=== PATIENT | female | born 1955 | race Caucasian/White ===

== ENCOUNTER → 2017-02-02 | Outpatient (CLI) | payer OTHER | END | disposition home or self-care (01) | LOC: LABPAT 10:57 | PROVIDERS: ATTEND Orthopaedic Surgery | DX: Z01.812 Encounter for preprocedural laboratory examination (principal) | CPT/HCPCS: 87070 ==

== ENCOUNTER 2017-02-13 06:03 | Inpatient (IN) | payer OTHER ==
[2017-02-08 13:42] VITALS: BMI 28.3
[~2017-02-13 06:03] MED LIST: ACETAMINOPHEN TAB 500 MG TAB PO ONE; DEXAMETHASONE SOD PHOSPHATE 10 MG/ML 1 ML VIAL IV ONE; HYDROmorphone 1 MG/ML 1 ML SYRINGE IVP PRN; MELOXICAM 7.5 MG TAB PO ONE; MIDAZOLAM 2 MG/2 ML VIAL IV PRN; ONDANSETRON 4 MG/2 ML VIAL IVP ONE; SCOPOLAMINE 1.5MG/72HR PATCH TRANSDERM ONE; TRANEXAMIC ACID 1,000 MG in SODIUM CHLORIDE 0.9% 100 ML IVPB ONE; ceFAZolin 2 GM in SODIUM CHLORIDE 0.9% 100 ML IVPB ONE
[2017-02-13] MEDS ORDERED: LIDOCAINE 1% 20 ML VIAL (10MG/ML) FOR IV START INTRADERMA ONE (06:22)
[2017-02-13] MEDS: LACTATED RINGERS 1,000 ML IV SCH (06:22)
[2017-02-13 06:37] LABS: Glucose,Whole Blood 100 mg/dL (75-99)
[2017-02-13] MEDS ORDERED: HEPARIN SODIUM,PORCINE 10,000 UNIT/ML 1 ML VIAL ONE (07:01)
[2017-02-13] MEDS ORDERED: SODIUM CHLORIDE 0.9% IRRIG 1,000 ML BTL IRRIGATION ONE (07:01)
[2017-02-13] MEDS ORDERED: TRANEXAMIC ACID 1,000 MG/10 ML VIAL ONE (07:01)
[2017-02-13] MEDS ORDERED: SODIUM CHLORIDE 0.9% 100 ML BAG ONE (07:01)
[2017-02-13] MEDS ORDERED: ceFAZolin 3,000 MG in SODIUM CHLORIDE 0.9% IRRIGATIO 3,000 ML IRRIGATION ONE (07:01)
[2017-02-13] MEDS ORDERED: MIDAZOLAM 2 MG/2 ML VIAL ONE (07:01)
[2017-02-13] MEDS ORDERED: PROPOFOL 10 MG/ML 20 ML VIAL IV ONE (07:01)
[2017-02-13] MEDS ORDERED: LACTATED RINGERS 1,000 ML IV ONE (07:18)
[2017-02-13] MEDS: ROPIVACAINE 246.25 MG, EPINEPHrine 0.5 MG, KETOROLAC 30 MG, cloNIDine HCL/PF 80 MCG, WA... MISCELLANE ONE ×10 (07:31→08:11)
--- NOTE | 2017-02-13 08:38 | XR ---
FLUOROSCOPY 43 seconds of fluoroscopy time were utilized during left hip arthroplasty. 2 images document the proc edure.
[2017-02-13] MEDS ORDERED: hydrOXYzine PAMOATE 25 MG CAP PO PRN (08:46)
[2017-02-13] MEDS ORDERED: HYDROcodone/APAP 5-325MG 1 EACH TAB PO PRN ×2 (08:46)
[2017-02-13] MEDS ORDERED: ONDANSETRON 4 MG/2 ML VIAL IVP PRN (08:46)
[2017-02-13] MEDS ORDERED: DIAZEPAM 5 MG TAB PO PRN ×2 (08:46)
[2017-02-13] MEDS ORDERED: NALOXONE 0.4 MG/ML 1 ML VIAL IV PRN (08:46)
[2017-02-13] MEDS ORDERED: MAGNESIUM HYDROXIDE 2,400 MG/10 ML CUP PO PRN (08:46)
[2017-02-13] MEDS ORDERED: HYDROmorphone 1 MG/ML 1 ML SYRINGE IVP PRN ×3 (08:46)
[2017-02-13 09:06] LABS: Glucose,Whole Blood 119 mg/dL (75-99)
--- NOTE | 2017-02-13 09:39 | XR ---
EXAMINATION TYPE: XR Hip Limited LT DATE OF EXAM ORDERED: 02/13/2017 HISTORY: Postop arthroplasty. COMPARISON: None. FINDINGS: A left arthroplasty has been performed. Prosthetic elements appear in good position. There is some subcutaneous air present. IMPRESSION: STATUS POST LEFT ARTHROPLASTY.
[2017-02-13] MEDS: ASPIRIN 325 MG TAB PO SCH ×2 (11:36→22:13)
[2017-02-13 11:44] LABS: Glucose,Whole Blood 109 mg/dL (75-99)
--- NOTE | 2017-02-13 13:30 | P.OP ---
Date of Procedure: 02/13/17 Preoperative Diagnosis: Severe osteoarthritis of the left hip Postoperative Diagnosis: Severe osteoarthritis of the left hip Procedure(s) Performed: Left total hip arthroplasty with a direct anterior approach Implants: [employer] Polarstem size 5 standard [employer] R3, 3 hole acetabular shell, 48 mm [employer] reflection 6.5 mm cancellus screw, 20 mm 2 [employer] R3, XLPE 20 acetabular liner [employer] Oxinium femoral head 32 m, +0 All components were press-fit. The articulation is ceramic on polyethylene. Anesthesia: spinal Surgeon: Andrew Gates Package Liner #1: Ora García Package Liner #2: Litzy Stallworth Estimated Blood Loss (ml): 175 (67 mL returned with Cell Saver) Pathology: other (Femoral head) Condition: stable Disposition: PACU Indications for Procedure: After failure of conservative treatment we discussed the surgical and nonsurgical treatment options at length. Patient wishes to proceed with a total hip arthroplasty with a direct anterior approach. Complications specific to this procedure were discussed at length, including but not limited to infection, leg length discrepancy, dislocation, and nerve injury. Patient is aware of all these complications and informed consent was obtained Operative Findings: The operative findings are consistent with severe osteoarthritis of the left hip Description of Procedure: Patient was seen and evaluated in the preoperative area, consent was reviewed, and the surgical site was marked with a skin marker. Patient was then brought to the operating room and given prophylactic antibiotics intravenously. 1 g of Tranexamic acid was also given. A spinal anesthetic was administered by the anesthesia department. The patient was then placed on the [place] table with the bony prominences well-padded. The hip area was then prepped and draped in usual sterile fashion. A universal timeout was then performed, which confirmed the patient's name, surgical site, ALLERGIES, and procedure being performed. Next the incision site was located at 1 cm distal and 1 cm lateral to the anterior superior iliac spine. The skin and subcutaneous tissues were sharply incised. Incision was carefully dissected down to the fascia overlying the tensor fascia greg muscle. This fascia was then incised in line with the incision. Next, using blunt finger dissection, the tensor fascia greg muscle was dissected off its investing fascia. The muscle was then carefully retracted laterally with a cobra retractor over the lateral neck of the femur. Next, the circumflex vessels were identified and cauterized using the AquaMantis device. The anterior hip capsule was then exposed. The capsule was then opened and an inverted T fashion. Retention sutures were placed in the inferior arms of the capsule. Cobra retractors were then placed intracapsularly. The proximal femur was then visualized. The femoral neck was then osteotomized appropriate level above the lesser trochanter. Small amount of traction was placed with the [place] table. A small wedge of bone was then removed from the remaining femoral head. Next, using a corkscrew femoral head was easily removed from the acetabulum. On gross visual inspection, the femoral head had complete loss of articular cartilage in multiple periarticular osteophytes. Attention was then turned to the acetabulum. the acetabulum was exposed and any remaining labrum was excised. Sequential reaming of the acetabulum was performed using fluoroscopic guidance. When the appropriate size was reached, a trial was then placed. The position and fit of the trial was checked with fluoroscopy. The trial was then removed. Then, using fluoroscopic guidance, the final implant was impacted at 20 of anteversion and 40 of abduction, and fully seated in the acetabulum. 2 screws were then placed in the acetabulum. Again fluoroscopy was used to check position of the screws. Next, the liner was then impacted, with a 20 elevated liner located in the anterior superior quadrant. Component locking was confirmed. Attention was then directed to the femur. With the aid of the [place] table, the femur was externally rotated to approximately 130, extended, and abducted under the opposite leg. A side hook was then placed under the proximal femur, and the side hook elevator was used to elevate the proximal femur. Retractors were then placed. A capsular release was performed, as well as a release of the conjoined tendon, which afforded excellent visualization of the proximal femur. Next, a box osteotome was used to lateralize the proximal femur. A sales merchandise associate was then used to locate the femoral canal. Sequential broaching was then performed with appropriate size which afforded excellent fixation in the proximal femur. A trial was then placed with appropriate head and neck, and the hip was gently reduced with the aid of the [place] table. Fluoroscopy was then used to check position of the components, as well as to ensure equal leg lengths. The hip was then gently dislocated and the trials were then removed. Final implants were then impacted and the hip was again reduced. Final fluoroscopic x-rays confirmed that the components were in anatomic position, as well as equal leg lengths. The hip was also taken through range of motion, and found to be stable. The hip was then copiously irrigated with antibiotic solution with pulsatile lavage. The hip was then irrigated with Irrisept solution. The soft tissues were then injected with a ropivacaine solution, which consisted of 246.25 mg of ropivacaine, 0.5 mg of epinephrine, 30 mg of Toradol, 80 g of clonidine, and 48.45 mL of sterile water, for a total of 100 mL of fluid injected. A second dose of 1 g of Tranexamic acid was also given. the fascia was then closed with 2-0 strata fix suture. The subcutaneous tissue was closed with 3-0 Vicryl. The subcuticular tissue was closed with 3-0 strata fix suture. The skin was then closed with Dermabond tape. The patient was then transferred to the recovery room in stable condition. The commercial lending assistant VERO Zuniga was required due to the complexity of surgery , and the need for skilled surgical attendant for positioning, draping, exposure , retraction, and closure of the wound.
[2017-02-13] MEDS: SODIUM CHLORIDE 0.9% 1,000 ML IV SCH ×2 (15:03→23:08)
[2017-02-13] MEDS: ceFAZolin 2 GM in SODIUM CHLORIDE 0.9% 100 ML IVPB SCH ×2 (15:03→23:06)
[2017-02-13 16:59] LABS: Glucose,Whole Blood 135 mg/dL (75-99)
[2017-02-13] MEDS: INSULIN LISPRO (humaLOG) 300 UNIT/3 ML VIAL SQ SCH ×2 (19:33→22:13)
[2017-02-13 20:33] LABS: Glucose,Whole Blood 162 mg/dL (75-99)
[2017-02-13] MEDS: SENNOSIDES-DOCUSATE SODIUM 1 EACH TAB PO SCH (22:13)
[2017-02-13] MEDS: ATORVASTATIN 10 MG TAB PO SCH (22:13)
[2017-02-13] MEDS: FLUTICASONE 50MCG/SPRAY NASAL 16GM EA NOSTRIL SCH (23:07)
[2017-02-14 00:54] VITALS: RESP 16
--- NOTE | 2017-02-14 05:50 | CONS ---
DATE OF CONSULTATION: 02/13/2017 REASON FOR CONSULTATION: Medical management requested by Dr. Gates. CONSULTATION: This is a 61-year-old patient of Dr. Chauhan undergone a left total hip arthroplasty. Post procedure, pain is controlled. No nausea or vomiting. No chest pain. Chronic stable medical conditions include diabetes, GERD, hyperlipidemia, hypertension, varicose veins. Lying in bed. REVIEW OF SYSTEMS: CONSTITUTIONAL: None. HEENT: None. RESPIRATORY: None. CARDIOVASCULAR: None. GASTROINTESTINAL: Heartburn. GENITOURINARY: None. MUSCULOSKELETAL: Pain in the joints. DERMATOLOGICAL: None. HEMATOLOGICAL: None. LYMPHATIC: None. PSYCHIATRY: None. NEUROLOGICAL: None. PAST MEDICAL HISTORY: Diabetes, GERD, hypertension, hyperlipidemia, varicose veins, osteoarthritis. PAST SURGICAL HISTORY: Cholecystectomy, orthopedic surgery, left knee arthroscopy. SOCIAL HISTORY: Does not smoke or drink alcohol. . FAMILY HISTORY: Cancer. HOME MEDICATIONS: 1. Ultram 50 mg p.o. b.i.d. p.r.n. 2. Zantac 150 mg p.o. daily. 3. Claritin 10 mg p.o. daily. 4. Zestril 2.5 p.o. daily. 5. Flonase one spray each nostril q.h.s. 6. Lipitor 10 mg q.h.s. Allergies to SULFA. On examination, temperature 97, pulse 59, respiration 16, blood pressure 122/71, pulse ox 97%. GENERAL APPEARANCE: Average built, lying in bed, comfortable. EYES: Pupils equal. Conjunctivae normal. HEENT: Oral cavity normal. NECK: JVD not raised. Mass not palpable. RESPIRATORY: Effort normal. LUNGS: Fair air entry. CARDIOVASCULAR: First and second sounds normal. No edema. ABDOMEN: Soft, nontender. Liver and spleen not palpable. LYMPHATIC: No lymph node palpable in neck or axillae. PSYCHIATRY: Alert and oriented x3. Mood and affect normal. NEUROLOGICAL: Pupils equal. Cranial nerves grossly intact. Power and sensation grossly intact. MUSCULOSKELETAL: Evidence of osteoarthritis in other joints. INVESTIGATIONS: Accu-Cheks are noted. ASSESSMENT: 1. Left total hip arthroplasty. 2. Primary osteoarthritis in multiple joints, bilateral. 3. Diabetes mellitus type 2. 4. Gastroesophageal reflux disease. 5. Hyperlipidemia. 6. Hypertension. 7. Varicose veins. PLAN: Home medications are resumed. Patient is on aspirin 325 twice a day for DVT prophylaxis. Pain is controlled. Care was discussed with the patient. Patient upon discharge should follow with Dr. Chauhan. Thank you Dr. Gates.
[2017-02-14 06:54] LABS: Glucose,Whole Blood 116 mg/dL (75-99)
[2017-02-14 07:23] LABS: Basophils % (A) 0 %; CH 26.1; CHCM 32.2; Eosinophils % (A) 0 %; HDW 2.53; HGB 10.4 gm/dL (11.4-16.0); Luc # (Auto) 0.15; Luc % (Auto) 2; Lymphocytes # (A) 1.5 k/uL (1.0-4.8); Lymphocytes % (A) 19 %; MCH 26.5 pg (25.0-35.0); MCHC 32.5 g/dL (31.0-37.0); MCV 81.3 fL (80.0-100.0); Mean Platelet Volume 7.3; Monocytes # (A) 0.5 k/uL (0-1.0); Monocytes % (A) 7 %; Neutrophils # (A) 5.8 k/uL (1.3-7.7); Neutrophils % (A) 72 %; RBC 3.93 m/uL (3.80-5.40); WBC (Perox) 8.76
[2017-02-14] MEDS: LACTATED RINGERS 1,000 ML IV SCH (07:35)
[2017-02-14] MEDS: INSULIN LISPRO (humaLOG) 300 UNIT/3 ML VIAL SQ SCH ×4 (07:37→23:42)
[2017-02-14] MEDS: ASPIRIN 325 MG TAB PO SCH ×2 (07:37→21:04)
[2017-02-14] MEDS: FAMOTIDINE 20 MG TAB PO SCH (07:37)
[2017-02-14] MEDS: traMADol 50 MG TAB PO PRN ×2 (07:37→13:33)
[2017-02-14] MEDS: LORATADINE 10 MG TAB PO SCH (07:38)
[2017-02-14] MEDS: MELOXICAM 7.5 MG TAB PO SCH (07:38)
[2017-02-14] MEDS: LISINOPRIL 2.5 MG TAB PO SCH (07:38)
[2017-02-14] MEDS ORDERED: ENOXAPARIN 40 MG/0.4 ML SYRINGE SQ SCH (09:00)
--- NOTE | 2017-02-14 09:04 | P.PN ---
Subjective Principal diagnosis: Status post total left hip arthroplasty This is a well-appearing 61-year-old female who is status post total left hip arthroplasty. This is postoperative day #1. Patient was seen and evaluated at bedside with Dr. Andrew Gates. Patient has been up and walking and her pain is under control. Patient has no new complaints today. Objective - Vital Signs Vital signs: Vital Signs Temp 98.3 F 02/14/17 07:34 Pulse 78 02/14/17 07:34 Resp 16 02/14/17 07:34 BP 126/74 02/14/17 07:34 Pulse Ox 97 02/14/17 07:34 Intake & Output 02/13/17 02/14/17 02/14/17 18:59 06:59 18:59 Intake Total 1401 940 Output Total 175 Balance 1226 940 Weight 77.111 kg Intake: IV 1401 Intake, IV Titration 700 Amount Sodium Chloride 0.9% 1, 600 000 ml @ 75 mls/hr IV . [id number] ORIN Rx#:[id number] ceFAZolin 2 gm In Sodium 100 Chloride 0.9% 100 ml @ 100 mls/hr IVPB Q8HR ORIN Rx#:[id number] Oral 240 Output: Estimated Blood Loss 175 Other: Voiding Method Incontinent Toilet Toilet # Voids 2 1 2 - Exam Vital signs are stable. Patient is in no acute distress and is alert and oriented 3. Calf is soft and nontender. Incision with dressing in place showing no drainage. Neurovascular status intact. Patient has full foot and ankle motion. Patient is able to ambulate without difficulty. - Labs CBC & Chem 7: 02/14/17 07:02 Labs: Abnormal Lab Results - Last 24 Hours (Table) 02/13/17 02/13/17 02/13/17 Range/Units 09:03 11:42 16:56 Hgb (11.4-16.0) gm/dL Hct (34.0-46.0) % POC Glucose (mg/dL) 119 H 109 H 135 H (75-99) mg/dL 02/13/17 02/14/17 02/14/17 Range/Units 20:31 06:52 07:02 Hgb 10.4 L (11.4-16.0) gm/dL Hct 32.0 L (34.0-46.0) % POC Glucose (mg/dL) 162 H 116 H (75-99) mg/dL Assessment and Plan (1) Primary osteoarthritis of left hip Status: Acute (2) History of total left hip arthroplasty Status: Acute Plan: Continue routine postop care. Continue antocoagulation. Weightbearing as tolerated with a walker Daily dressing changes, keep incision clean and dry Possible discharge to rehab Sunday.
[2017-02-14 11:37] LABS: Glucose,Whole Blood 124 mg/dL (75-99)
[2017-02-14 11:42] LABS: Hemoglobin A1C 5.9 % (4.2-6.1)
[2017-02-14] MEDS: SODIUM CHLORIDE 0.9% 1,000 ML IV SCH (13:32)
[2017-02-14 17:10] LABS: Glucose,Whole Blood 120 mg/dL (75-99)
[2017-02-14] MEDS ORDERED: traMADol 50 MG TAB PO PRN (19:06)
[2017-02-14] MEDS: FLUTICASONE 50MCG/SPRAY NASAL 16GM EA NOSTRIL SCH ×2 (21:04→21:48)
[2017-02-14] MEDS: ATORVASTATIN 10 MG TAB PO SCH (21:04)
[2017-02-14 21:25] LABS: Glucose,Whole Blood 143 mg/dL (75-99)
[2017-02-14] MEDS: SENNOSIDES-DOCUSATE SODIUM 1 EACH TAB PO SCH (23:03)
--- NOTE | 2017-02-15 07:16 | PN ---
DATE OF SERVICE: 02/14/2017 PRESENTING COMPLAINT: Left hip surgery. INTERVAL HISTORY: Patient is status post left hip surgery, doing better, comfortable. No chest pain, short of breath. Tolerated his diet. Was out of bed. Review systems done for constitutional, cardiovascular, GI, pulmonary, musculoskeletal; relevant findings as above. Current medications are reviewed. On examination, temperature 98.3, pulse 78, respiration 16, blood pressure 126/74, pulse ox 97% on room air. GENERAL APPEARANCE: Sitting up, comfortable. EYES: Pupils equal. Conjunctivae normal. NECK: JVD not raised. Mass not palpable. RESPIRATORY: Effort normal. Lungs are clear. CARDIOVASCULAR: First and second sounds normal. No edema. ABDOMEN: Soft, nontender. Liver and spleen not palpable. PSYCHIATRY: Alert and oriented x3. Mood and affect normal. INVESTIGATIONS: Hemoglobin is 10.4 ASSESSMENT: 1. Left total hip arthroplasty. 2. Primary osteoarthritis multiple joints, bilateral. 3. Diabetes mellitus type 2. 4. Gastroesophageal reflux disease. 5. Hyperlipidemia. 6. Essential hypertension. 7. Varicose veins. PLAN: Continue current medication and treatment plan. Will follow.
[2017-02-15 07:21] LABS: Glucose,Whole Blood 130 mg/dL (75-99)
[2017-02-15] MEDS: SODIUM CHLORIDE 0.9% 1,000 ML IV SCH ×2 (07:45→12:45)
[2017-02-15] MEDS: LACTATED RINGERS 1,000 ML IV SCH (07:46)
[2017-02-15] MEDS: INSULIN LISPRO (humaLOG) 300 UNIT/3 ML VIAL SQ SCH ×4 (07:47→21:10)
[2017-02-15] MEDS: FAMOTIDINE 20 MG TAB PO SCH (08:07)
[2017-02-15] MEDS: LORATADINE 10 MG TAB PO SCH (08:07)
[2017-02-15] MEDS: MELOXICAM 7.5 MG TAB PO SCH (08:07)
[2017-02-15] MEDS: ASPIRIN 325 MG TAB PO SCH ×2 (08:08→20:01)
[2017-02-15] MEDS: LISINOPRIL 2.5 MG TAB PO SCH (08:08)
--- NOTE | 2017-02-15 08:48 | P.PN ---
Subjective Principal diagnosis: Status post total left hip arthroplasty This is a well-appearing 61-year-old female who is status post total left hip arthroplasty. This is postoperative day #2. Patient was seen and evaluated at bedside today. Patient has been up and walking and states her pain is under control. Patient has no new complaints today. Objective - Vital Signs Vital signs: Vital Signs Temp 99.1 F 02/15/17 07:40 Pulse 87 02/15/17 07:40 Resp 16 02/15/17 07:40 BP 115/59 02/15/17 07:40 Pulse Ox 96 02/15/17 07:40 Intake & Output 02/14/17 02/15/17 02/15/17 18:59 06:59 18:59 Intake Total 240 Output Total 0 Balance 240 0 Intake: Oral 240 Output: Urine 0 Other: Voiding Method Toilet # Voids 2 0 # Bowel Movements 1 - Exam Vital signs are stable. Patient is in no acute distress and is alert and oriented 3. Calf is soft and nontender. Incision is clean, dry, and intact. Neurovascular status intact. Patient has full foot and ankle motion. - Labs CBC & Chem 7: 02/14/17 07:02 Labs: Abnormal Lab Results - Last 24 Hours (Table) 02/14/17 02/14/17 02/14/17 Range/Units 11:33 17:08 21:24 POC Glucose (mg/dL) 124 H 120 H 143 H (75-99) mg/dL 02/15/17 Range/Units 07:01 POC Glucose (mg/dL) 130 H (75-99) mg/dL Assessment and Plan (1) Primary osteoarthritis of left hip Status: Acute (2) History of total left hip arthroplasty Status: Acute Plan: Continue routine postop care. Continue antocoagulation. Weightbearing as tolerated with a walker Daily dressing changes, keep incision clean and dry Likely discharge to rehab tomorrow
[2017-02-15 12:08] LABS: Glucose,Whole Blood 114 mg/dL (75-99)
[2017-02-15 16:57] LABS: Glucose,Whole Blood 123 mg/dL (75-99)
[2017-02-15] MEDS: ATORVASTATIN 10 MG TAB PO SCH (20:01)
[2017-02-15] MEDS: FLUTICASONE 50MCG/SPRAY NASAL 16GM EA NOSTRIL SCH (20:01)
[2017-02-15] MEDS: SENNOSIDES-DOCUSATE SODIUM 1 EACH TAB PO SCH (20:01)
[2017-02-15 20:53] LABS: Glucose,Whole Blood 150 mg/dL (75-99)
[2017-02-16] MEDS: LACTATED RINGERS 1,000 ML IV SCH (06:26)
[2017-02-16] MEDS: SODIUM CHLORIDE 0.9% 1,000 ML IV SCH (06:26)
[2017-02-16 07:22] LABS: Basophils % (A) 0 %; CH 26.2; Eosinophils # (A) 0.1 k/uL (0-0.7); Eosinophils % (A) 1 %; HCT 32.3 % (34.0-46.0); HDW 2.47; HGB 10.3 gm/dL (11.4-16.0); Luc # (Auto) 0.18; Luc % (Auto) 2; Lymphocytes # (A) 1.8 k/uL (1.0-4.8); Lymphocytes % (A) 24 %; MCH 26.3 pg (25.0-35.0); MCV 82.2 fL (80.0-100.0); Mean Platelet Volume 7.2; Monocytes # (A) 0.6 k/uL (0-1.0); Monocytes % (A) 8 %; Neutrophils # (A) 4.8 k/uL (1.3-7.7); Neutrophils % (A) 64 %; RBC 3.93 m/uL (3.80-5.40); RDW 14.1 % (11.5-15.5); WBC 7.4 k/uL (3.8-10.6)
[2017-02-16 07:29] VITALS: BP 116/58; PULSE 80; TEMP 98.2
[2017-02-16 07:52] LABS: Glucose,Whole Blood 119 mg/dL (75-99)
[2017-02-16] MEDS: INSULIN LISPRO (humaLOG) 300 UNIT/3 ML VIAL SQ SCH ×2 (08:04→12:07)
--- NOTE | 2017-02-16 08:08 | P.DS ---
Providers Date of admission: 02/13/17 06:03 Expected date of discharge: 02/16/17 Attending physician: Andrew Gates Consults: 02/13/17 08:46 Consult Physician Routine Consulting Provider: Doe Burdick Consult Reason/Comments: medical management Do you want consulting provider notified?: Yes Primary care physician: Yunior Chauhan - Discharge Diagnosis(es) (1) Primary osteoarthritis of left hip Current Visit: Yes Status: Acute (2) History of total left hip arthroplasty Current Visit: Yes Status: Acute Hospital Course: This is a 61-year-old female with known history of degenerative arthritis of the left hip. The patient presents for evaluation. After discussion and consideration patient elects to proceed with total hip arthroplasty. The patient is seen preoperatively by Dr. Gates and cleared for surgery. Patient is admitted to [facility] on 02/13/2017 for total hip arthroplasty. The procedures performed without complication or sequelae. The patient is doing well postoperatively. Labs and vital signs are stable on day of discharge. On day of discharge patient's hip incision is healing well. There is minimal erythema. There is no drainage noted at this time. There is minimal soft tissue swelling to the hip and thigh. Patient has full foot and ankle motion without difficulty or pain. Neurovascular status to the left lower extremity is intact. Patient is discharged to rehab in good condition.Please see med rec for accurate list of home medications. Plan - Discharge Summary New Discharge Prescriptions: New Aspirin 325 mg PO BID #60 tab HYDROcodone/APAP 5-325MG [[place] 5-325] 1 - 2 tab PO Q4-6H PRN #90 tab PRN Reason: Pain Sennosides-Docusate Sodium [Senokot-S] 1 tab PO BID #60 tablet Continue Acetaminophen Tab [Tylenol] 1,500 mg PO Q6H PRN PRN Reason: Pain Ranitidine HCl [Zantac] 150 mg PO DAILY Loratadine 10 mg PO DAILY Fluticasone Nasal [place] [Flonase Nasal [place]] 1 spray EA NOSTRIL HS Atorvastatin Calcium [Lipitor] 10 mg PO HS Lisinopril [Zestril] 2.5 mg PO DAILY traMADol HCL [Ultram] 50 mg PO BID PRN PRN Reason: Pain Discharge Medication List Acetaminophen Tab [Tylenol] 1,500 mg PO Q6H PRN 02/08/17 [History] Atorvastatin Calcium [Lipitor] 10 mg PO HS 02/08/17 [History] Fluticasone Nasal [place] [Flonase Nasal [place]] 1 spray EA NOSTRIL HS 02/08/17 [ History] Lisinopril [Zestril] 2.5 mg PO DAILY 02/08/17 [History] Loratadine 10 mg PO DAILY 02/08/17 [History] Ranitidine HCl [Zantac] 150 mg PO DAILY 02/08/17 [History] traMADol HCL [Ultram] 50 mg PO BID PRN 02/08/17 [History] Aspirin 325 mg PO BID #60 tab 02/15/17 [Rx] HYDROcodone/APAP 5-325MG [[place] 5-325] 1 - 2 tab PO Q4-6H PRN #90 tab 02/15/17 [ Rx] Sennosides-Docusate Sodium [Senokot-S] 1 tab PO BID #60 tablet 02/15/17 [Rx] Follow up Appointment(s)/Referral(s): Yunior Chauhan MD [Primary Care Provider] - 3 Days Andrew Gates DO [Doctor of Osteopathic Medicine] - 2 Weeks Ambulatory/Diagnostic Orders: Basic Metabolic Panel [LAB.AMB] Location: Determined By Patient Activity/Diet/Wound Care/Special Instructions: [facility] rehab Weightbearing as tolerated with walker May shower after 2 days if no drainage from the incision Follow-up with [facility] in 2 weeks with any questions or concerns, [phone]. Discharge Disposition: TRANSFER TO SNF/ECF
[2017-02-16] MEDS: LISINOPRIL 2.5 MG TAB PO SCH (08:32)
[2017-02-16] MEDS: LORATADINE 10 MG TAB PO SCH (08:32)
[2017-02-16] MEDS: MELOXICAM 7.5 MG TAB PO SCH (08:32)
[2017-02-16] MEDS: FAMOTIDINE 20 MG TAB PO SCH (08:32)
[2017-02-16] MEDS: ASPIRIN 325 MG TAB PO SCH (08:33)
[2017-02-16 12:05] LABS: Glucose,Whole Blood 127 mg/dL (75-99)
--- NOTE | 2017-02-16 21:48 | PN ---
DATE OF SERVICE: 02/15/2017 PRESENTING COMPLAINT: Left hip surgery. INTERVAL HISTORY: This patient was seen by me on 02/15/2017. The patient is status post left hip surgery, doing better. No new issues. Tolerating at diet. Working with physical therapy. Review of systems done for constitutional, cardiovascular, GI, pulmonary, musculoskeletal; relevant findings as above. Current medications are reviewed. On examination, temperature 99.1, pulse 87, respirations 18, blood pressure 115/59, pulse ox 96% on room air. GENERAL APPEARANCE: Sitting up, comfortable. EYES: Pupils equal. Conjunctivae normal. NECK: JVD not raised. Mass not palpable. RESPIRATORY: Effort normal. LUNGS: Clear. CARDIOVASCULAR: First and second sounds normal. No edema. ABDOMEN: Soft, nontender. Liver and spleen not palpable. PSYCHIATRY: Alert and oriented times three. Mood and affect normal. INVESTIGATIONS: Accu-Cheks are noted. ASSESSMENT: 1. Left breast left total hip arthroplasty. 2. Primary osteoarthritis of multiple joints, bilateral. 3. Diabetes mellitus type 2. 4. Gastroesophageal reflux disease. 5. Hyperlipidemia. 6. Essential hypertension. 7. Varicose veins. PLAN: Care was discussed with the patient. No new issues. Continue to ambulate with therapy.
--- NOTE | 2017-02-16 23:19 | PN ---
DATE OF SERVICE: 02/16/2017 PRESENTING COMPLAINT: Left hip surgery. INTERVAL HISTORY: Patient is status post left hip surgery, doing much better. Tolerating a diet. Keen to go. Review of systems done for constitutional, cardiovascular, GI, pulmonary, musculoskeletal; findings as above. Current medications are reviewed. On examination, temperature 98.2, pulse 80, respirations 16, blood pressure 106/58, pulse ox 95% on room air. GENERAL APPEARANCE: Sitting up, comfortable. EYES: Pupils equal. Not raised. Mass not palpable. RESPIRATORY: Effort normal. Lungs are clear. CARDIOVASCULAR: First and second sounds normal. No edema. ABDOMEN: Soft. Liver and spleen not palpable. PSYCHIATRY: Mood normal. INVESTIGATIONS: White count 7.4, hemoglobin 10.3. ASSESSMENT: 1. Left total hip arthroplasty. 2. Primary osteoarthritis multiple joints bilaterally. 3. Diabetes mellitus type 2. 4. Gastroesophageal reflux disease. 5. Hyperlipidemia. 6. Essential hypertension. 7. Varicose veins. PLAN: Patient is stable. Looking forward for discharge. Care was discussed with the patient. Questions were answered.
== END 2017-02-16 15:11 | DRG 470 ==
LOC: 2ORMAIN 06:03 → 3SUR 08:55
PROVIDERS: ADMIT Orthopaedic Surgery; ATTEND Orthopaedic Surgery
PROC: 0SRB04A Replacement of Left Hip Joint with Ceramic on Polyethylene Synthetic Substitute, Uncemented, Open Approach (ICD-10-PCS; principal; 2017-02-13 07:00)
DX: M16.12 Unilateral primary osteoarthritis, left hip (principal); I10 Essential (primary) hypertension; E11.9 Type 2 diabetes mellitus without complications; E78.5 Hyperlipidemia, unspecified; I83.90 Asymptomatic varicose veins of unspecified lower extremity; K21.9 Gastro-esophageal reflux disease without esophagitis; Z79.899 Other long term (current) drug therapy; Z88.2 Allergy status to sulfonamides; Z79.82 Long term (current) use of aspirin
CPT/HCPCS: 73501; 83036; 85025; 86850; 86891; 86900; 86901; 88300

== ENCOUNTER 2019-09-22 07:00 | Inpatient (IN) | payer OTHER ==
[2019-09-16 13:52] VITALS: BMI 29.1
[~2019-09-22 07:00] MED LIST changes: +GABAPENTIN 300 MG CAP PO ONE; -HYDROmorphone 1 MG/ML 1 ML SYRINGE IVP PRN; +LIDOCAINE 1% 20 ML VIAL (10MG/ML) FOR IV START INTRADERMA PRN; -MIDAZOLAM 2 MG/2 ML VIAL IV PRN; +ROPIVACAINE 246.25 MG, EPINEPHrine 0.5 MG, KETOROLAC 30 MG, cloNIDine HCL/PF 80 MCG, WA... MISCELLANE ONE; -SCOPOLAMINE 1.5MG/72HR PATCH TRANSDERM ONE; -ceFAZolin 2 GM in SODIUM CHLORIDE 0.9% 100 ML IVPB ONE; +fentaNYL (PF) 50 MCG/ML 2 ML AMP IV PRN
[2019-09-22] MEDS ORDERED: MAGNESIUM HYDROXIDE 2,400 MG/10 ML CUP PO PRN (11:51)
[2019-09-22] MEDS ORDERED: hydrOXYzine PAMOATE 25 MG CAP PO PRN (11:51)
[2019-09-22] MEDS ORDERED: ONDANSETRON 4 MG/2 ML VIAL IVP PRN (11:51)
[2019-09-22] MEDS ORDERED: NALOXONE 0.4 MG/ML 1 ML VIAL IV PRN (11:51)
[2019-09-22] MEDS ORDERED: DIAZEPAM 5 MG TAB PO PRN (11:51)
[2019-09-22] MEDS ORDERED: HYDROcodone/APAP 5-325MG 1 EACH TAB PO PRN ×2 (11:51)
[2019-09-22] MEDS ORDERED: HYDROmorphone 1 MG/ML 1 ML SYRINGE IVP PRN (11:51)
[2019-09-22] MEDS ORDERED: HYDROmorphone 0.5 MG/0.5 ML SYRINGE IVP PRN (11:51)
[2019-09-22] MEDS: LACTATED RINGERS 1,000 ML IV SCH (12:24)
[2019-09-22] MEDS ORDERED: PROPOFOL 10 MG/ML 20 ML VIAL IV ONE (12:50)
[2019-09-22] MEDS ORDERED: HEPARIN SODIUM,PORCINE 10,000 UNIT/ML 1 ML VIAL ONE (12:50)
[2019-09-22] MEDS ORDERED: HYDROmorphone (PF) 1 MG/ML ONE (12:50)
[2019-09-22] MEDS ORDERED: LACTATED RINGERS 1,000 ML BAG IV ONE (12:50)
[2019-09-22] MEDS ORDERED: fentaNYL (PF) 50 MCG/ML 2 ML AMP ONE (12:50)
[2019-09-22] MEDS ORDERED: MIDAZOLAM 2 MG/2 ML VIAL ONE (12:50)
[2019-09-22] MEDS ORDERED: ceFAZolin 3,000 MG in SODIUM CHLORIDE 0.9% IRRIGATIO 3,000 ML IRRIGATION ONE (12:53)
--- NOTE | 2019-09-22 14:32 | P.OP ---
Date of Procedure: 09/22/19 Preoperative Diagnosis: Severe osteoarthritis right hip Postoperative Diagnosis: Severe osteoarthritis right hip Procedure(s) Performed: Right total hip arthroplasty with a direct anterior approach Implants: [employer] Polarstem size 4 standard [employer] R3, 3 hole acetabular shell, 50 mm [employer] reflection 6.5 mm cancellus screw, 20 mm 2 [employer] R3, XLPE 20 acetabular liner [employer] Oxinium femoral head 32 m, -3 All components were press-fit. The articulation is Oxinium on polyethylene. Anesthesia: spinal Surgeon: Andrew Gates Crop Grain Or Livestock Farmer #1: Litzy Carrera Estimated Blood Loss (ml): 100 Pathology: other (Femoral head) Condition: stable Disposition: PACU Indications for Procedure: After failure of conservative treatment we discussed the surgical and nonsurgical treatment options at length. Patient wishes to proceed with a total hip arthroplasty with a direct anterior approach. Complications specific to this procedure were discussed at length, including but not limited to infection, leg length discrepancy, dislocation, and nerve injury. Patient is aware of all these complications and informed consent was obtained Operative Findings: The operative findings are consistent with severe osteoarthritis of the right hip Description of Procedure: Patient was seen and evaluated in the preoperative area, consent was reviewed, and the surgical site was marked with a skin marker. Patient was then brought to the operating room and given prophylactic antibiotics intravenously. 1 g of Tranexamic acid was also given. A spinal anesthetic was administered by the anesthesia department. The patient was then placed on the [place] table with the bony prominences well-padded. The hip area was then prepped and draped in usual sterile fashion. A universal timeout was then performed, which confirmed the patient's name, surgical site, ALLERGIES, and procedure being performed. Next the incision site was located at 1 cm distal and 1 cm lateral to the anterior superior iliac spine. The skin and subcutaneous tissues were sharply incised. Incision was carefully dissected down to the fascia overlying the tensor fascia greg muscle. This fascia was then incised in line with the incision. Next, using blunt finger dissection, the tensor fascia greg muscle was dissected off its investing fascia. The muscle was then carefully retracted laterally with a cobra retractor over the lateral neck of the femur. Next, the circumflex vessels were identified and cauterized using the AquaMantis device. The anterior hip capsule was then exposed. The capsule was then opened and an inverted T fashion. Cobra retractors were then placed intracapsularly. The proximal femur was then visualized. The femoral neck was then osteotomized appropriate level above the lesser trochanter. Small amount of traction was placed with the [place] table. A small wedge of bone was then removed from the remaining femoral head. Next, using a corkscrew femoral head was easily removed from the acetabulum. On gross visual inspection, the femoral head had complete loss of articular cartilage in multiple periarticular osteophytes. Attention was then turned to the acetabulum. the acetabulum was exposed and any remaining labrum was excised. Sequential reaming of the acetabulum was performed using fluoroscopic guidance. When the appropriate size was reached, a trial was then placed. The position and fit of the trial was checked with fluoroscopy. The trial was then removed. Then, using fluoroscopic guidance, the final implant was impacted at 20 of anteversion and 40 of abduction, and fully seated in the acetabulum. 2 screws were then placed in the acetabulum. Again fluoroscopy was used to check position of the screws. Next, the liner was then impacted, with a 20 elevated liner located in the anterior superior quadrant. Component locking was confirmed. Attention was then directed to the femur. With the aid of the [place] table, the femur was externally rotated to approximately 130, extended, and abducted under the opposite leg. A side hook was then placed under the proximal femur, and the side hook elevator was used to elevate the proximal femur. Retractors were then placed. A capsular release was performed, as well as a release of the conjoined tendon, which afforded excellent visualization of the proximal femur. Next, a box osteotome was used to lateralize the proximal femur. A replenishment merchandising associate was then used to locate the femoral canal. Sequential broaching was then performed with appropriate size which afforded excellent fixation in the proximal femur. A trial was then placed with appropriate head and neck, and the hip was gently reduced with the aid of the [place] table. Fluoroscopy was then used to check position of the components, as well as to ensure equal leg lengths. The hip was then gently dislocated and the trials were then removed. Final implants were then impacted and the hip was again reduced. Final fluoroscopic x-rays confirmed that the components were in anatomic position, as well as equal leg lengths. The hip was also taken through range of motion, and found to be stable. The hip was then copiously irrigated with antibiotic solution with pulsatile lavage. The hip was then irrigated with Irrisept solution. The soft tissues were then injected with a ropivacaine solution, which consisted of 246.25 mg of ropivacaine, 0.5 mg of epinephrine, 30 mg of Toradol, 80 g of clonidine, and 48.45 mL of sterile water, for a total of 100 mL of fluid injected. A second dose of 1 g of Tranexamic acid was also given. the fascia was then closed with 2-0 strata fix suture. The subcutaneous tissue was closed with 3-0 Vicryl. The subcuticular tissue was closed with 3-0 strata fix suture. The skin was then closed with Dermabond glue and a sterile silver dressing. The patient was then transferred to the recovery room in stable condition. The payroll assistant VERO Wilson was required due to the complexity of surgery, and the need for skilled medical surgical tech for positioning, draping, exposure, retraction, and closure of the wound.
--- NOTE | 2019-09-22 14:47 | XR ---
EXAMINATION TYPE: XR Hip Limited RT, FL guidance operating room DATE OF EXAM: 09/22/2019 CLINICAL HISTORY: Fluoroscopic documentation during left hip anterior arthroplasty TECHNIQUE: Fluoroscopy. COMPARISON: None. FINDINGS: Fluoroscopic guidance was provided during procedure performed by Dr. Gates. A total of 37 seconds of fluoroscopic time was utilized during the procedure and 2 spot images was acquired. IMPRESSION: As Above.
[2019-09-22] MEDS: HYDROmorphone 0.5 MG/0.5 ML SYRINGE IVP PRN ×3 (15:02→18:05)
--- NOTE | 2019-09-22 15:10 | XR ---
EXAMINATION TYPE: XR Hip Limited RT DATE OF EXAM: 09/22/2019 CLINICAL HISTORY: Right hip pain and osteoarthritis. TECHNIQUE: Single AP portable view of right hip is obtained immediately postoperatively. COMPARISON: None. FINDINGS: Metallic hardware from right hip arthroplasty is seen and appears satisfactory in alignment and position. There is evidence of recent surgery with subcutaneous gas noted laterally. IMPRESSION: Metallic hardware from right hip arthroplasty is satisfactory in position.
[2019-09-22] MEDS: SODIUM CHLORIDE 0.9% 1,000 ML IV SCH (17:44)
[2019-09-22 20:32] VITALS: TEMP 97.5
[2019-09-22] MEDS ORDERED: SENNOSIDES-DOCUSATE SODIUM 1 EACH TAB PO SCH (21:00)
[2019-09-22] MEDS: ASPIRIN 325 MG TAB PO SCH (21:07)
[2019-09-22] MEDS ORDERED: ATORVASTATIN 10 MG TAB PO SCH (21:15)
--- NOTE | 2019-09-22 21:20 | P.CONS ---
History of Present Illness - Reason for Consult Consult date: 09/22/19 Medical management Requesting physician: Andrew Gates - Chief Complaint Right hip arthroplasty - History of Present Illness Consultation: This is a very pleasant 64 a patient of . Chronic stable medical conditions include type controlled diabetes, GERD, hypertension, hyperlipidemia, varicose veins. Patient is undergoing right total hip arthroplasty. Post procedure pain is controlled. No nausea vomiting. Laying in bed. Did tolerate some supple. No chest pain or shortness of breath. No nausea no vomiting. Review of systems: GEN.: None EYES: None HEENT: None NECK: None RESPIRATORY: None CARDIOVASCULAR: None GASTROINTESTINAL: None GENITOURINARY: None MUSCULOSKELETAL: Joint pains LYMPHATICS: None HEMATOLOGICAL: None PSYCHIATRY: None NEUROLOGICAL: None. Social history: Does not smoke. Alcohol rarely. . Physical examination: VITAL SIGNS: 97.5, 61, 14, 97/60, 39% GENERAL: BMI 29.8, laying in bed awake. EYES: Pupils equal. Conjunctiva normal. HEENT: External appearance of nose and ears normal, oral cavity grossly normal. NECK: JVD not raised; masses not palpable. HEART: First and second heart sounds are normal; no edema. LUNGS: Respiratory rate normal; clear to auscultation. ABDOMEN: Soft, nontender, liver spleen not palpable, no masses palpable. PSYCH: Alert and oriented x3; mood and affect normal. NEUROLOGICAL: Cranial nerves grossly intact; no facial asymmetry, power and sensation grossly intact. LYMPHATICS: No lymph nodes palpable in the axilla and neck MUSCULOSKELETAL: Dressing over the right hip incision Investigations: None Assessment: -Right total hip arthroplasty -GERD -Essential hypertension -Hyperlipidemia -Diet controlled diabetes Plan: Home medications resumed. Pain control is in place. On Venodyne boots in place. Patient is getting aspirin for DVT prophylaxis per Dr. Gates. Care was discussed with the patient. Questions were answered. Thank you Dr. Gates Past Medical History Past Medical History: Diabetes Mellitus, GERD/Reflux, Hyperlipidemia, Hypertension, Osteoarthritis (OA) Additional Past Medical History / Comment(s): varicose veins, diet control diabetic, History of Any Multi-Drug Resistant Organisms: None Reported Past Surgical History: Cholecystectomy, Joint Replacement, Orthopedic Surgery Additional Past Surgical History / Comment(s): left knee arthroscopy, lt total hip replacement Past Anesthesia/Blood Transfusion Reactions: Previous Problems w/ Anesthesia Additional Past Anesthesia/Blood Transfusion Reaction / Comm: had breathing problems after cholecystectomy Past Psychological History: No Psychological Hx Reported Smoking Status: Never smoker Past Alcohol Use History: Rare Past Drug Use History: None Reported - Past Family History Sister(s) Family Medical History: Cancer Mother Family Medical History: Cancer Medications and Allergies Home Medications Medication Instructions Recorded Confirmed Type Atorvastatin Calcium [Lipitor] 20 mg PO HS 02/08/17 09/22/19 History Fluticasone Nasal [place] [Flonase 1 spray EA NOSTRIL HS 02/08/17 09/22/19 History Nasal [place]] Lisinopril [Zestril] 2.5 mg PO DAILY 02/08/17 09/22/19 History Ascorbic Acid [Vitamin C] 500 mg PO DAILY 09/16/19 09/22/19 History Aspirin [Adult Low Dose Aspirin EC] 81 mg PO DAILY 09/16/19 09/22/19 History Celecoxib [CeleBREX] 100 mg PO DAILY PRN 09/16/19 09/22/19 History Cholecalciferol [Vitamin D3] 400 unit PO DAILY 09/16/19 09/22/19 History Famotidine [Pepcid] 20 mg PO DAILY 09/16/19 09/22/19 History Ferrous Sulfate [Feosol] 325 mg PO DAILY 09/16/19 09/22/19 History [place]-3 Fatty Acids/Fish Oil [Fish 1 each PO DAILY 09/16/19 09/22/19 History Oil 1,000 mg Softgel] diphenhydrAMINE [Benadryl] 25 mg PO DAILY 09/16/19 09/22/19 History Allergies Allergy/AdvReac Type Severity Reaction Status Date / Time Sulfa (Sulfonamide Allergy Rash/Hives Verified 09/22/19 12:11 Antibiotics) Physical Exam Vitals: Vital Signs Temp Pulse Resp BP Pulse Ox 09/22/19 19:10 97.5 F L 61 14 97/60 99 09/22/19 17:37 97.9 F 55 L 12 121/74 98 09/22/19 17:02 50 L 16 102/53 93 L 09/22/19 16:31 50 L 16 94/50 93 L 09/22/19 16:01 52 L 16 87/50 93 L 09/22/19 15:45 49 L 16 101/54 93 L 09/22/19 15:30 52 L 16 97/52 93 L 09/22/19 15:15 53 L 16 115/58 100 09/22/19 15:02 52 L 16 118/62 100 09/22/19 14:45 55 L 16 125/63 100 09/22/19 14:40 97.5 F L 66 16 112/59 96 09/22/19 12:22 98 F 68 16 138/77 98 Intake and Output 09/22/19 09/22/19 09/22/19 06:59 14:59 22:59 Intake Total 1326 Output Total 100 Balance 1226 Intake: IV 1326 Output: Estimated Blood Loss 100 Other: Weight 81.3 kg 81.3 kg
[2019-09-23] MEDS: SODIUM CHLORIDE 0.9% 1,000 ML IV SCH (03:25)
[2019-09-23] MEDS: LACTATED RINGERS 1,000 ML IV SCH (05:41)
[2019-09-23 07:23] LABS: Glucose,Whole Blood 108 mg/dL (75-99)
[2019-09-23 07:46] LABS: Basophils % (A) 0 %; Eosinophils % (A) 0 %; HCT 36.5 % (34.0-46.0); HGB 11.6 gm/dL (11.4-16.0); Lymphocytes # (A) 1.1 k/uL (1.0-4.8); Lymphocytes % (A) 9 %; MCH 26.1 pg (25.0-35.0); MCHC 31.7 g/dL (31.0-37.0); MCV 82.3 fL (80.0-100.0); Mean Platelet Volume 8.2; Monocytes # (A) 0.6 k/uL (0-1.0); Monocytes % (A) 5 %; Neutrophils # (A) 9.5 k/uL (1.3-7.7); Neutrophils % (A) 85 %; Platelet Count 245 k/uL (150-450); RBC 4.43 m/uL (3.80-5.40); RDW 14.1 % (11.5-15.5); WBC 11.2 k/uL (3.8-10.6)
[2019-09-23] MEDS: ASPIRIN 325 MG TAB PO SCH (07:46)
[2019-09-23] MEDS: HYDROmorphone 0.5 MG/0.5 ML SYRINGE IVP PRN (07:47)
[2019-09-23 07:59] VITALS: BP 100/63; PULSE 60; RESP 16
[2019-09-23] MEDS ORDERED: LISINOPRIL 2.5 MG TAB PO SCH (09:00)
[2019-09-23] MEDS ORDERED: FAMOTIDINE 20 MG TAB PO SCH (09:00)
[2019-09-23] MEDS ORDERED: MELOXICAM 7.5 MG TAB PO SCH (09:00)
[2019-09-23] MEDS ORDERED: ASCORBIC ACID 500 MG TAB PO SCH (09:00)
[2019-09-23] MEDS ORDERED: FERROUS SULFATE 325 MG TAB PO SCH (09:00)
--- NOTE | 2019-09-23 09:21 | P.DS ---
Providers Date of admission: 09/22/19 11:57 Expected date of discharge: 09/23/19 Attending physician: Andrew Gates Consults: 09/22/19 11:51 Consult Physician Routine Consulting Provider: Doe Burdick Consult Reason/Comments: medical management Do you want consulting provider notified?: Yes Primary care physician: Yunior Chauhan - Discharge Diagnosis(es) (1) Osteoarthritis of right hip Current Visit: Yes Status: Acute (2) S/P total hip arthroplasty Current Visit: Yes Status: Acute Hospital Course: This is a 64-year-old female with known history of degenerative arthritis of the right hip. The patient presents for evaluation. After discussion and consideration patient elects to proceed with total hip arthroplasty. The patient is seen preoperatively by Dr. Gates and medically cleared for surgery by their primary care physician. Patient is admitted to [facility] on 09/22/2019 for total hip arthroplasty. The procedures performed without complication or sequelae. The patient is doing well postoperatively. Labs and vital signs are stable on day of discharge. On day of discharge patient's hip incision is healing well. There is minimal erythema. There is no drainage noted at this time. There is minimal soft tissue swelling to the hip and thigh. Patient has full foot and ankle motion without difficulty or pain. Calf is soft and nontender to palpation. Neurova scular status to the right lower extremity is intact. Patient is discharged home in good condition. Opioid start talking form is reviewed and signed at patient bedside. Please see med rec for accurate list of home medications. Plan - Discharge Summary Discharge Rx Participant: No New Discharge Prescriptions: New Aspirin 325 mg PO BID #60 tab HYDROcodone/APAP 5-325MG [Rapidan 5-325] 1 - 2 tab PO Q6HR PRN #56 tab PRN Reason: Pain Sennosides [Senokot] 2 tab PO DAILY PRN #60 tablet PRN Reason: Constipation No Action Fluticasone Nasal [place] [Flonase Nasal [place]] 1 spray EA NOSTRIL HS Atorvastatin Calcium [Lipitor] 20 mg PO HS Lisinopril [Zestril] 2.5 mg PO DAILY diphenhydrAMINE [Benadryl] 25 mg PO DAILY Celecoxib [CeleBREX] 100 mg PO DAILY PRN PRN Reason: Pain Famotidine [Pepcid] 20 mg PO DAILY Aspirin [Adult Low Dose Aspirin EC] 81 mg PO DAILY Ferrous Sulfate [Feosol] 325 mg PO DAILY Cholecalciferol [Vitamin D3] 400 unit PO DAILY Ascorbic Acid [Vitamin C] 500 mg PO DAILY [place]-3 Fatty Acids/Fish Oil [Fish Oil 1,000 mg Softgel] 1 each PO DAILY Discharge Medication List Atorvastatin Calcium [Lipitor] 20 mg PO HS 02/08/17 [History] Fluticasone Nasal [place] [Flonase Nasal [place]] 1 spray EA NOSTRIL HS 02/08/17 [History] Lisinopril [Zestril] 2.5 mg PO DAILY 02/08/17 [History] Ascorbic Acid [Vitamin C] 500 mg PO DAILY 09/16/19 [History] Aspirin [Adult Low Dose Aspirin EC] 81 mg PO DAILY 09/16/19 [History] Celecoxib [CeleBREX] 100 mg PO DAILY PRN 09/16/19 [History] Cholecalciferol [Vitamin D3] 400 unit PO DAILY 09/16/19 [History] Famotidine [Pepcid] 20 mg PO DAILY 09/16/19 [History] Ferrous Sulfate [Feosol] 325 mg PO DAILY 09/16/19 [History] [place]-3 Fatty Acids/Fish Oil [Fish Oil 1,000 mg Softgel] 1 each PO DAILY 09/16/19 [History] diphenhydrAMINE [Benadryl] 25 mg PO DAILY 09/16/19 [History] Aspirin 325 mg PO BID #60 tab 09/23/19 [Rx] HYDROcodone/APAP 5-325MG [R[place]idan 5-325] 1 - 2 tab PO Q6HR PRN #56 tab 09/23/19 [Rx] Sennosides [Senokot] 2 tab PO DAILY PRN #60 tablet 09/23/19 [Rx] Follow up Appointment(s)/Referral(s): Andrew Gates DO [Doctor of Osteopathic Medicine] - 2 Weeks Activity/Diet/Wound Care/Special Instructions: Weightbearing as tolerated with walker. Leave dressing intact. Dressing may be removed by home care nurse or by patient in 10 days. May shower with dressing on. Recommend use of compression stockings daily for at least 2 weeks during the day to help prevent swelling and blood clots. May remove at night before sleeping. Please follow-up with [facility] in 2 weeks and call with any [facility] ns or concerns, . Discharge Disposition: HOME WITH HOME HEALTH SERVICES
--- NOTE | 2019-09-24 00:33 | P.PN ---
Progress Note - Text Progress Note Date: 09/23/19 - Chief Complaint Right hip arthroplasty interval history: This is a very pleasant 64 a patient of . Chronic stable medical conditions include type controlled diabetes, GERD, hypertension, hyperlipidemia, varicose veins. underwent right total hip arthroplasty. Today-feeling well. Pain control. Did work with therapy. No new issues. Tolerated diet. No chest pain. No shortness of breath. Feeling well. Review of systems: Was done for constitutional, cardiovascular, GI, pulmonary.musculoskeletal relevant finding as above Current medications reviewed in today's electronic records Physical examination: VITAL SIGNS: 97.5, 60, 16, 100/63, 94% on room air GENERAL: sitting up, comfortable EYES: Pupils equal. Conjunctiva normal. HEENT: External appearance of nose and ears normal, oral cavity grossly normal. NECK: JVD not raised; masses not palpable. HEART: First and second heart sounds are normal; no edema. LUNGS: Respiratory rate normal; clear to auscultation. ABDOMEN: Soft, nontender, liver spleen not palpable, no masses palpable. PSYCH: Alert and oriented x3; mood and affect normal. MUSCULOSKELETAL: Dressing over the right hip incision Investigations: white count 11.2 hemoglobin 11.6 Accu-Cheks 108 Assessment: -Right total hip arthroplasty -GERD -Essential hypertension -Hyperlipidemia -Diet controlled diabetes Plan: stable. Doing well. Continue medications. Discussed with patient. Thank you Dr. Gates
== END 2019-09-23 14:17 | disposition home or self-care (01) | DRG 470 ==
LOC: 2ORMAIN 11:57 → 4SSUR 14:44
PROVIDERS: ADMIT Orthopaedic Surgery; ATTEND Orthopaedic Surgery
PROC: 0SR906A Replacement of Right Hip Joint with Oxidized Zirconium on Polyethylene Synthetic Substitute, Uncemented, Open Approach (ICD-10-PCS; principal; 2019-09-22 12:45)
DX: M16.11 Unilateral primary osteoarthritis, right hip (principal); E11.9 Type 2 diabetes mellitus without complications; I10 Essential (primary) hypertension; K21.9 Gastro-esophageal reflux disease without esophagitis; E78.5 Hyperlipidemia, unspecified; I83.90 Asymptomatic varicose veins of unspecified lower extremity; Z79.82 Long term (current) use of aspirin; Z79.1 Long term (current) use of non-steroidal anti-inflammatories (NSAID); Z79.899 Other long term (current) drug therapy; Z96.642 Presence of left artificial hip joint; Z90.49 Acquired absence of other specified parts of digestive tract; Z88.2 Allergy status to sulfonamides; Z80.9 Family history of malignant neoplasm, unspecified
CPT/HCPCS: 36415; 73501; 85025; 86850; 86891; 86900; 86901; 88300